=== PATIENT | male | born 1955 | race Caucasian/White ===

== ENCOUNTER 2019-05-09 00:24 | Day surgery (SDC) | payer BC, SELFPAY ==
[2019-04-30 14:39] VITALS: BMI 34.0
[2019-05-09 07:16] VITALS: BP 151/92; PULSE 67; RESP 18; TEMP 36.1; O2SAT 97
[2019-05-09] MEDS: LACTATED RINGERS 1,000 ML 150 ML IV CONT (07:20)
[2019-05-09 07:27] LABS: Glucose Point of Care 211 (65-105)
--- NOTE | 2019-05-09 07:50 | PM.HPGS ---
History of Present Illness History of Present Illness Consent: Risks, benefits, and alternatives have been discussed and questions answered. Patient agrees to proceed with procedure. Chief complaint: Neoplasm screening, family hx colon ca Narrative: Freedom Carey is a 63 year old male with a family history of colon cancer [facility] Family History Family History (Updated 12/04/13 @ 07:13 by DOCTOR UNKNOWN) Father Family history of coronary artery disease Social History Social History Smoking status: Former smoker Smoking end date: 04/09/11 Alcohol intake: current Meds Home Medications and Allergies Home Medications Medication Instructions Recorded Confirmed Type aspirin [Aspir-81] 81 mg PO DAILY 04/30/19 04/30/19 History atorvastatin 80 mg PO QAM 04/30/19 04/30/19 History diclofenac-misoprostol 1 tablet PO BID 04/30/19 04/30/19 History exenatide [Byetta] 10 mcg SUBCUT BID 04/30/19 04/30/19 History finasteride 1 mg PO QAM 04/30/19 04/30/19 History fluticasone propionate 1 spray INTRANASAL QAM PRN 04/30/19 04/30/19 History glipizide 10 mg PO BID 04/30/19 04/30/19 History hydrocodone-acetaminophen 1 tablet PO QID PRN 04/30/19 04/30/19 History insulin regular hum U-500 conc 85 unit SUBCUT QAM 04/30/19 04/30/19 History [Humulin R U-500 (Conc) Kwikpen] insulin regular hum U-500 conc 115 unit SUBCUT QACDINNER 04/30/19 04/30/19 History [Humulin R U-500 (Conc) Kwikpen] metformin 850 mg PO TID 04/30/19 04/30/19 History metoprolol tartrate 25 mg PO BID 04/30/19 04/30/19 History sildenafil [Viagra] 100 mg PO DAILY PRN 04/30/19 04/30/19 History trazodone 100 mg PO HS 04/30/19 04/30/19 History valsartan-hydrochlorothiazide 1 tablet PO QAM 04/30/19 04/30/19 History Allergies Allergy/AdvReac Type Severity Reaction Status Date / Time No Known Allergies Allergy Verified 05/09/19 07:15 Vital Signs Vital Signs - 24 hr 05/09/19 07:16 Temperature 36.1 C L Pulse Rate 67 Respiratory Rate 18 Blood Pressure 151/92 H Pulse Oximetry 97 Exam Resp: Auscultation: clear to auscultation bilaterally Cardio: Rate: regular rate Rhythm: regular rhythm GI: GI Palp: Yes Soft to palpation and No Tenderness to palpation present (GI) Assessment and Plan Assessment and plan (1) Colon cancer screening: Code(s): Z12.11 - Encounter for screening for malignant neoplasm of colon Status: Acute Assessment and Plan: Colonoscopy with possible biopsy or polypectomy or cautery or injection of substances.
--- NOTE | 2019-05-09 08:11 | WPDANESEPPF ---
Anes - Initial Pre Proc Eval Procedure: Operation Date: 05/09/19 08:30 Proposed Procedures p Screening Colonoscopy - Jitendra Daniel MD Date/Time: 05/09/19 08:11 Surgeon: Jitendra Daniel MD Pre Op Diagnosis: Neoplasm screening, family hx colon ca Patient Data Age: 63 Gender: M Height: 1.93 m Weight: 129.4 kg Last Vital Signs Temp 36.1 C L 05/09/19 07:16 Pulse 67 05/09/19 07:16 Resp 18 05/09/19 07:16 BP 151/92 H 05/09/19 07:16 Pulse Ox 97 05/09/19 07:16 Allergies Allergy/AdvReac Type Severity Reaction Status Date / Time No Known Allergies Allergy Verified 05/09/19 07:15 Home Medications Medication Instructions Recorded Confirmed Type aspirin [Aspir-81] 81 mg PO DAILY 04/30/19 04/30/19 History atorvastatin 80 mg PO QAM 04/30/19 04/30/19 History diclofenac-misoprostol 1 tablet PO BID 04/30/19 04/30/19 History exenatide [Byetta] 10 mcg SUBCUT BID 04/30/19 04/30/19 History finasteride 1 mg PO QAM 04/30/19 04/30/19 History fluticasone propionate 1 spray INTRANASAL QAM PRN 04/30/19 04/30/19 History glipizide 10 mg PO BID 04/30/19 04/30/19 History hydrocodone-acetaminophen 1 tablet PO QID PRN 04/30/19 04/30/19 History insulin regular hum U-500 conc 85 unit SUBCUT QAM 04/30/19 04/30/19 History [Humulin R U-500 (Conc) Kwikpen] insulin regular hum U-500 conc 115 unit SUBCUT QACDINNER 04/30/19 04/30/19 History [Humulin R U-500 (Conc) Kwikpen] metformin 850 mg PO TID 04/30/19 04/30/19 History metoprolol tartrate 25 mg PO BID 04/30/19 04/30/19 History sildenafil [Viagra] 100 mg PO DAILY PRN 04/30/19 04/30/19 History trazodone 100 mg PO HS 04/30/19 04/30/19 History valsartan-hydrochlorothiazide 1 tablet PO QAM 04/30/19 04/30/19 History Laboratory Tests 05/09/19 07:25 POC Capillary Glucose 211 mg/dl H mg/dl (65-105) Patient hx anesthesia problems: none Family hx anesthesia problems: none PMFSH Past Medical History Medical History (Updated 05/09/19 @ 08:14 by Alvarado Obrien MD) Arthritis CAD (coronary artery disease) 5 HEART STENTS Chronic narcotic use Diabetes TYPE II/INSULIN HTN (hypertension) Hx of myocardial infarction 2007 Hypercholesterolemia Obesity SREE (obstructive sleep apnea) WEARS CPAP Family History Family History (Updated 12/04/13 @ 07:13 by DOCTOR UNKNOWN) Father Family history of coronary artery disease Social History Social History Smoking status: Former smoker Smoking end date: 04/09/11 Alcohol intake: current Anes - Eval Final PreProcedure Day of Procedure 05/09/19 08:11 Patient weight: obese Heart: regular rate and rhythm Lungs: clear to auscultation and normal air movement Airway: Mallampati scale class II Neurological: alert and oriented Last oral intake: >/= 8 hours ASA classification: III Emergent: no Anesthetic plan: proceed Anesthesia type and monitoring: general GIVS Informed Consent: The patient's anesthetic plan and its attendant risks and benefits were discussed with the patient/family/POA. Questions were solicited and answers provided to the satisfaction of the patient/family/POA.
[2019-05-09 08:43] VITALS: BP 106/65; PULSE 73; RESP 20; O2SAT 95
[2019-05-09 08:53] VITALS: BP 118/73; PULSE 76; RESP 20; O2SAT 97
[2019-05-09 08:55] LABS: Glucose Point of Care 216 (65-105)
[2019-05-09 09:03] VITALS: BP 134/81; PULSE 62; RESP 20; O2SAT 98
== END 2019-05-09 09:16 | disposition home or self-care (01) ==
PROVIDERS: PCP Family Medicine; Visit Provider Internal Medicine Gastroenterology
PROC: 0DJD8ZZ Inspection of Lower Intestinal Tract, Via Natural or Artificial Opening Endoscopic (ICD-10-PCS; CPT 45378; principal; 2019-05-09 08:30)
DX: Z12.11 Encounter for screening for malignant neoplasm of colon (principal); Z80.0 Family history of malignant neoplasm of digestive organs; K57.30 Diverticulosis of large intestine without perforation or abscess without bleeding; I10 Essential (primary) hypertension; I25.10 Atherosclerotic heart disease of native coronary artery without angina pectoris; E11.9 Type 2 diabetes mellitus without complications; I25.2 Old myocardial infarction; E78.00 Pure hypercholesterolemia, unspecified; G47.33 Obstructive sleep apnea (adult) (pediatric); Z95.5 Presence of coronary angioplasty implant and graft; Z79.4 Long term (current) use of insulin; Z79.82 Long term (current) use of aspirin; Z79.84 Long term (current) use of oral hypoglycemic drugs; E66.9 Obesity, unspecified; Z68.34 Body mass index [BMI] 34.0-34.9, adult; Z79.891 Long term (current) use of opiate analgesic; Z87.891 Personal history of nicotine dependence
CPT/HCPCS: 45378; J2001; J2704; J7120

== ENCOUNTER 2019-12-15 00:34 | Emergency (ER) | payer BC, SELFPAY ==
--- NOTE | 2019-12-15 00:56 | ED.CPR ---
HPI - CPR General Chief Complaint: Cardiac Arrest/CPR Stated Complaint: CARDIAC ARREST Time Seen by Provider: 12/15/19 00:34 History of Present Illness HPI narrative: Patient is a 64-year-old male with history of coronary disease who presents the ER in cardiac arrest. Patient was lying in bed with his when he suddenly became unconscious. Patient had downtime of approximately 10 minutes before EMS could arrive and began performing CPR. They initiated tibial IO and began giving epinephrine. Patient was in V. fib and received shock x3 until going into asystole. He also received amiodarone 300 mg. Patient continued to receive epinephrine in route to the ER remaining in asystole. He was intubated by EMS with a Cam airway. End-tidal CO2 upon arrival was 20. Related Data Home Medications Medication Instructions Recorded Confirmed Byetta 10 mcg SUBCUT BID 04/30/19 06/06/19 aspirin [Aspir-81] 81 mg PO DAILY 04/30/19 06/06/19 fluticasone propionate 1 spray INTRANASAL QAM PRN 04/30/19 06/06/19 glipizide 10 mg PO BID 04/30/19 06/06/19 hydrocodone-acetaminophen 1 tablet PO QID PRN 04/30/19 06/06/19 metformin 850 mg PO TID 04/30/19 06/06/19 metoprolol tartrate 25 mg PO BID 04/30/19 06/06/19 valsartan-hydrochlorothiazide 1 tablet PO QAM 04/30/19 06/06/19 insulin regular hum U-500 conc 90 unit SUBCUT QAM ml 06/06/19 06/06/19 Allergies Allergy/AdvReac Type Severity Reaction Status Date / Time No Known Allergies Allergy Verified 06/06/19 13:39 Review of Systems Review of Systems: ROS unobtainable: Yes unobtainable due to medical condition [facility] Past Medical History Medical History (Updated 12/15/19 @ 01:00 by Drew Gonzales MD) Arthritis Atherosclerotic heart disease of [place] coronary artery without angina pectoris CAD (coronary artery disease) 5 HEART STENTS Chronic narcotic use Diabetes TYPE II/INSULIN HTN (hypertension) Hx of myocardial infarction 2007 Hypercholesterolemia Obesity SREE (obstructive sleep apnea) WEARS CPAP Surgical History Surgical History (Updated 12/15/19 @ 00:57 by Drew Gonzales MD) History of percutaneous coronary intervention Family History Family History (Updated 12/04/13 @ 07:13 by DOCTOR UNKNOWN) Father Family history of coronary artery disease Social History Social History Smoking status: Former smoker Smoking end date: 04/09/11 Alcohol intake: current Drinks per week: 2 Substance use: never Substance use type: does not use Gender identity (if verbalized by the patient): Male Exam Narrative: Exam Narrative: GENERAL: Unresponsive, obese. HEAD: Normocephalic, atraumatic. EYES: Pupils fixed and dilated. ENT: Mucous membranes moist. CHEST: No spontaneous respirations. Clear with bagging. HEART: No pulses and poor capillary refill with cessation of chest compressions. ABDOMEN: Soft, nondistended. EXTREMITIES: No deformity to the upper or lower extremities. Right tibial IO. No spontaneous movement. SKIN: Warm, dry, no rash. NEURO: GCS 3.. Course Course Emergency Course: ACLS protocol continued. Multiple rounds of epinephrine. Bicarb administered as well. Patient had asystole during pulse checks. at bedside and patient pronounced as at 0046. Dr. White contacted at [phone] and will sign the certificate. Critical Care Time Critical Care Time Critical Care Time: No Discharge Plan Discharge Clinical Impression: Cardiac arrest Patient Disposition: Condition: Prescriptions: No Action sildenafil [Viagra] 100 mg tablet 100 mg PO DAILY PRN (Reason: erectile dysfunction) Qty: 3 RF: 5 diclofenac-misoprostol 75-200 mg-mcg tablet,IR,delayed rel,biphasic 1 tablet PO BID Qty: 180 RF: 2 hydrocodone-acetaminophen 5-325 mg tablet 1 tablet PO QID PRN (Reason: Pain) RF: 0 glipizide 10 mg tablet extended release 24hr 10 mg PO
== END 2019-12-15 03:04 | disposition expired ==
PROVIDERS: Emergency Provider Emergency Medicine; PCP Family Medicine
DX: I46.9 Cardiac arrest, cause unspecified (principal); M19.90 Unspecified osteoarthritis, unspecified site; I25.10 Atherosclerotic heart disease of native coronary artery without angina pectoris; E11.9 Type 2 diabetes mellitus without complications; Z79.4 Long term (current) use of insulin; I10 Essential (primary) hypertension; I25.2 Old myocardial infarction; E78.5 Hyperlipidemia, unspecified
CPT/HCPCS: 92950; 99285; J0171; J0282